=== PATIENT | female | born 1995 | race Caucasian/White ===

== ENCOUNTER 2019-03-29 21:39 | Emergency (ER) | payer OTHER ==
[~2019-03-29] VITALS: Ht 147.3 cm; Wt 58.0 kg
[2019-03-29] MEDS ORDERED: SODIUM CHLORIDE 0.9% 1,000 ML IV ONE (22:02)
[2019-03-29 23:00] LABS: BASOPHILS % 0.1 % (0.0-2.0); HEMATOCRIT. 35.2 % (36.0-48.0); LYMPHOCYTES % 38.9 % (20.0-50.0); MEAN CORPUSCULAR HEMOGLOBIN 27.1 pg (28.0-32.0); MEAN CORPUSCULAR VOLUME 79.2 fL (81.0-99.0); MEAN PLATELET VOLUME 8.9 fl (7.4-10.4); MONOCYTES % 7.7 % (2.0-8.0); NEUTROPHILS % 51.3 % (40.0-76.0); PLATELET 240 x1000/uL (130-400); RED BLOOD CELL COUNT 4.44 mill/uL (4.2-5.4); RED CELL DISTRIBUTION WIDTH 12.8 % (11.6-14.6)
[2019-03-29 23:06] LABS: CHLORIDE 111 mEq/L (98-107)
[2019-03-29 23:17] LABS: T4 FREE >8.0 ng/dL ng/dL (0.76-1.46)
[2019-03-29 23:30] VITALS: BP 134/92
== END 2019-03-30 02:20 | disposition left against medical advice (07) ==
LOC: ER 21:39
DX: R00.2 Palpitations (principal); R06.02 Shortness of breath; E05.90 Thyrotoxicosis, unspecified without thyrotoxic crisis or storm; R00.0 Tachycardia, unspecified; I10 Essential (primary) hypertension
CPT/HCPCS: 36415; 71045; 80053; 81025; 83880; 84439; 84443; 84480; 84484; 85025; 93005; 99284; J7030; Z7610

== ENCOUNTER 2024-03-19 18:24 | Emergency (ER) | payer MEDICAID, OTHER ==
[~2024-03-19] VITALS: Ht 147.3 cm; Wt 67.0 kg
[2024-03-19 18:26] VITALS: O2SAT 98
[2024-03-19] MEDS: MECLIZINE 25MG TABLET PO ONE (19:15)
[2024-03-19] MEDS ORDERED: MECL-217 MT (19:38)
[2024-03-19 20:27] VITALS: BP 138/81; PULSE 85; RESP 18; TEMP 36.78072; O2SAT 98
== END 2024-03-19 20:28 | disposition home or self-care (01) ==
LOC: ER 18:24
DX: R42 Dizziness and giddiness (principal); I10 Essential (primary) hypertension; E03.9 Hypothyroidism, unspecified
CPT/HCPCS: 99283; 93005; J8597